=== PATIENT | male | born 1995 | race African-American/Black ===

== ENCOUNTER 2016-09-15 12:40 | Emergency (ER) | payer BC, SELFPAY ==
--- NOTE | 2016-09-15 13:53 | RAD ---
EXAM: RIGHT HAND 3 VIEWS: HISTORY: The patient pinched and dropped generator on the right hand. Pain. COMPARISON: FINDINGS: FINDINGS: There is a nondisplaced fracture involving the head of the 5th metacarpal. There may be intraarticu lar extension. Additional fractures are not appreciated. Joint space is preserved. IMPRESSION: Nondisplaced fracture involving the 5th metacarpal head. POS: [facility]
--- NOTE | 2016-09-15 13:54 | ERRECORD ---
[facility] EMERGENCY RECORD HPI HAND (13:35 PMYE) CHIEF COMPLAINT: Patient presents for evaluation of injury, to the right hand. HISTORIAN: History provided by patient. MECHANISM OF INJURY: 21 y/o male who dropped a 80 lb generator on right hand. LOCATION: Symptoms are generalized. QUALITY: Pain is sharp in nature. SEVERITY: Maximum severity of symptoms mild, Currently symptoms are mild. TIME COURSE: Gradual onset of symptoms, There has been no change in the patient's symptoms over time. ASSOCIATED WITH: No associated symptoms, N V intact distally. EXACERBATED BY: Patient's condition exacerbated by flexion of fingers. RELIEVED BY: Patient's condition relieved by rest. ROS (13:36 PMYE) CONSTITUTIONAL: Negative constitutional review of systems, Historian denies chills, denies fatigue, denies fever. EYES: Negative eye review of systems, Historian denies eye pain, denies eye redness. ENT: Negative ears, nose, throat review of systems, Historian denies dysphasia, denies otalgia, denies sore throat. CARDIOVASCULAR: Negative cardiovascular review of systems, Historian denies chest pain, denies dyspnea on exertion, denies syncope. RESPIRATORY: Negative respiratory review of systems, Historian denies cough, denies shortness of breath, denies wheezing. GI: Negative gastrointestinal review of systems, Historian denies abdominal pain, denies nausea, denies vomiting. MUSCULOSKELETAL: Negative musculoskeletal review of systems, Historian denies back pain, denies neck pain. SKIN: Negative skin review of systems, Historian denies rash. NEUROLOGIC: Negative neurologic review of systems, Historian denies confusion, denies headache, denies paresthesias. PSYCHIATRIC: Negative psychiatric review of systems, Historian denies alcohol abuse, denies drug abuse, denies homicidal ideation, denies suicidal ideation. PAST [facility]13:02 [facility] MEDICAL HISTORY: No past medical history. MALE SURGICAL HISTORY: L femur surgery. PSYCHIATRIC HISTORY: No previous psychiatric history. SOCIAL HISTORY: Patient denies alcohol use, Patient denies drug use, Patient is a former tobacco user, smoked cigarettes, Patient quit smoking less than 10 years ago. KNOWN ALLERGIES None CURRENT MEDICATIONS (12:59 [facility] &a-1R&a+25V*p+0X*v7473Z*c202B*c15G*c2P*p-0X&a-25V&a+1R Name: Dionicio Cherry : 1995 M21 MedRec: [id number] AcctNum: [id number] Prepared: ThuSep 15, 2016 14:06 by Interface Page 1 of 3 pMD [facility] EMERGENCY RECORD None VITAL SIGNS (12:57 [facility] VITAL SIGNS: BP: 121/71, Pulse: 78, Resp: 18, Temp: 98.1 (Oral), Pain: 5, O2 sat: 98 on Room Air, Time: 09/15/2016 12:57. PHYSICAL EXAM (13:36 PMYE) CONSTITUTIONAL: Vital signs reviewed, Patient afebrile, Pulse normal, Blood pressure normal, Respiratory rate normal. HEAD: Head exam normal, Head exam included findings of head atraumatic, normocephalic. EYES: Eye exam normal, Eye exam included findings of eyelids normal to inspection, Pupils equally round and reactive to light, Extraocular muscles intact. ENT: ENT exam normal, Pharynx exam normal, Uvula exam normal, Tonsil exam normal. NECK: Neck exam normal, Neck exam included findings of normal range of motion, Trachea midline. RESPIRATORY CHEST: Respiratory and chest exam normal, No wheezing, No rales, No rhonchi. CARDIOVASCULAR: Cardiovascular assessment normal, Cardiovascular exam included findings of heart rate regular rate and rhythm, Heart sounds normal. ABDOMEN MALE: Abdominal exam normal, Abdominal exam included findings of abdomen nontender, Bowel sounds normal. BACK: Back exam normal. UPPER EXTREMITY: Palp pain at MCP joint of 5th digit. Pain w/ AROM. NV intact. NEURO: Neuro exam normal, Neuro exam findings include patient oriented to person, place and time, [place] coma scale 15, Speech normal. SKIN: Skin exam included findings of skin warm, dry, and normal in color. PSYCHIATRIC: Psychiatric exam included findings of patient oriented to person place and time, Normal affect. RADIOLOGYINTERPRETATION (13:37 PMYE) UPPER EXTERMITIES: Radiological interpretation of, the right hand shows, fracture noted, to metacarpal, 5th finger. DOCTOR NOTES (13:39 PMYE) TEXT: xr show MC fx distal 5th. Pt placed in ulnar gutter. Will f/u w/ ortho. PROBLEM LIST No recorded problems DIAGNOSIS (13:40 PMYE) FINAL: PRIMARY: 5th metacarpal fracture. &a-1R&a+25V*p+0X*f0792L*c202B*c15G*c2P*p-0X&a-25V&a+1R Name: Dionicio Cherry : 1995 1 MedRec: [id number] AcctNum: [id number] Prepared: ThuSep 15, 2016 14:06 by Interface Page 2 of 3 pMD [facility] EMERGENCY RECORD PRESCRIPTION No recorded prescriptions DISPOSITION PATIENT: Disposition Type: Discharge, Disposition: *Discharge Home. (13:40 PMYE) Patient left the department. (13:58 RK) Hernandez: PMYE=DO Randolph Paul [facility]=JULIA Dunn, Phylicia &a-1R&a+25V*p+0X*s9023C*c202B*c15G*c2P*p-0X&a-25V&a+1R Name: Doinicio Cherry : 1995 1 MedRec: [id number] AcctNum: [id number] Prepared: ThuSep 15, 2016 14:06 by Interface Page 3 of 3 pMD MTDD
--- NOTE | 2016-09-15 13:55 | PICIS ---
[facility] EMERGENCY RECORD TRIAGE (ThuSep 15, 2016 12:59 [facility]) TRIAGE NOTES: Pinched, dropped generator R hand 4-5 inches loading off a truck. (ThuSep 15, 2016 12:59 [facility]) PATIENT: NAME: Dionicio hCerry, AGE: 21, GENDER: male, : Thu1995, TIME OF GREET: ThuSep 15, 2016 12:41, PREFERRED LANGUAGE: Urdu, ECODE BILLING MAP: [facility], Zip Code: [address], KG WEIGHT: 70.31, PHONE: , , , PERSON ID: [id number], [facility] (ThuSep 15, 2016 12:59 [facility]) COMPLAINT: GET RT HAND CHECKED OUT. (ThuSep 15, 2016 12:59 [facility]) ADMISSION: URGENCY: 4 Non Urgent, ADMISSION SOURCE: Work, TRANSPORT: CAR, BED: TRIAGE. (ThuSep 15, 2016 12:59 [facility]) IMMUNIZATIONS: Flu vaccine not up to date, Tetanus not up to date. (13:02 [facility]) SIRS SCORING: Heart Rate 55-109 (0), Temp range 96.8-101.1 (0), respiratory rate 12-24 (0). (13:02 [facility]) TRIAGE SCREENING: Patient denies suicidal ideation, Patient denies presence of domestic violence. (13:02 [facility]) PROVIDERS: TRIAGE NURSE: Phylicia Dunn RN. (ThuSep 15, 2016 12:59 [facility]) VITAL SIGNS: BP 121/71, Pulse 78, Resp 18, Temp 98.1, (Oral), Pain 5, O2 Sat 98, on Room Air, Time 09/15/2016 12:57. (12:57 [facility]) KNOWN ALLERGIES None CURRENT MEDICATIONS (12:59 [facility]) None VITAL SIGNS (12:57 [facility]) VITAL SIGNS: BP: 121/71, Pulse: 78, Resp: 18, Temp: 98.1 (Oral), Pain: 5, O2 sat: 98 on Room Air, Time: 09/15/2016 12:57. NURSING ASSESSMENT: EXTREMITY UPPER (13:03 [facility]) CONSTITUTIONAL: Complex assessment performed, Patient arrives ambulatory, Gait steady, History obtained from patient, Patient appears comfortable, Patient cooperative, Patient alert, Oriented to person, place and time, Skin warm, Skin dry, Skin normal in color, Mucous membranes pink, Mucous membranes moist, Patient is well-groomed, Pt reports accidentally dropping a generator on his R hand during work this AM. He reports throbbing pain since then, and says he can still move his hand, but "my pinky pops when I try to fully extend it." Pt's hand is swollen and feels slightly feverish to the touch. PAIN: to the right hand, on a scale 0-10 patient rates pain as 5. LEFT UPPER EXTREMITY: Left upper extremity assessment findings include capillary refill less than 2 seconds, Skin color normal to &a-1R&a+25V*p+0X*v9863E*c202B*c15G*c2P*p-0X&a-25V&a+1R Name: Dionicio Cherry Juanjo : 1995 M21 MedRec: [id number] AcctNum: [id number] Prepared: ThuSep 15, 2016 14:06 by Interface Page 1 of 5 pMD [facility] EMERGENCY RECORD hand, Skin temperature to hand warm, Distal sensation intact, Muscle tone normal, muscle strength 5, no edema present, radial pulse is +3. RIGHT UPPER EXTREMITY: Right upper extremity assessment findings include capillary refill less than 2 seconds, Skin color normal to hand, Skin temperature to hand warm, Distal sensation intact, Muscle tone normal, muscle strength 4, no edema present, radial pulse is +3, Inspection findings include swelling, to R pinky, lateral hand. SAFETY: Side rails up, Cart/Stretcher in lowest position, Call light within reach, Hospital ID band on. NURSING PROCEDURE: BEDSIDE RADIOLOGY (13:05 [facility]) PATIENT IDENTIFIER: Patient actively involved in identification process, Patient's identity verified by patient stating name, Patient's identity verified by hospital ID bracelet. BEDSIDE RADIOLOGY: Bedside radiology performed by Geno, Portable x-ray performed, of the right hand. SAFETY: Side rails up, Cart/Stretcher in lowest position, Call light within reach, Hospital ID band on. NURSING PROCEDURE: DISCHARGE NOTE (13:56 [facility]) DISCHARGE: Patient discharged to home, ambulating without assistance, driving self, unaccompanied, Discharge instructions given to patient, Simple or moderate discharge teaching performed, by JULIA Whatley, Patient treated and evaluated by physician. BELONGINGS: Belongings and valuables with patient upon arrival to the Emergency Department include:, Belongings and valuables with patient at time of discharge include:. NURSING PROCEDURE: SPLINTING (13:55 [facility]) SPLINTING: Splinting indicated for fracture care, Splint applied to, the right hand, by ADAM Randolph, 2 inch josué wrap applied, Immobilized in position of comfort. FOLLOW-UP: After procedure, capillary refill less than 2 seconds, After procedure, distal circulation intact, After procedure, distal motor function intact, After procedure, distal sensation intact, After procedure, distal pulses present. SAFETY: Side rails up, Cart/Stretcher in lowest position, Family at bedside, Call light within reach, Hospital ID band on. ORDER DETAILS Order Name: XR Hand Rt 3 View STANDARD, Status: Active, Time: 13:00 09/15/2016, User: [facility], - Ordered for: DO Randolph Paul, - Entered by: JULIA Dunn, Phylicia - ThuSep 15, 2016 13:00, - Quantity: 1. HPI HAND (13:35 PMYE) CHIEF COMPLAINT: Patient presents for evaluation of &a-1R&a+25V*p+0X*w4309T*c202B*c15G*c2P*p-0X&a-25V&a+1R Name: Dionicio Cherry : 1995 M21 MedRec: [id number] AcctNum: [id number] Prepared: ThuSep 15, 2016 14:06 by Interface Page 2 of 5 pMD [facility] EMERGENCY RECORD injury, to the right hand. HISTORIAN: History provided by patient. MECHANISM OF INJURY: 21 y/o male who dropped a 80 lb generator on right hand. LOCATION: Symptoms are generalized. QUALITY: Pain is sharp in nature. SEVERITY: Maximum severity of symptoms mild, Currently symptoms are mild. TIME COURSE: Gradual onset of symptoms, There has been no change in the patient's symptoms over time. ASSOCIATED WITH: No associated symptoms, N V intact distally. EXACERBATED BY: Patient's condition exacerbated by flexion of fingers. RELIEVED BY: Patient's condition relieved by rest. ROS (13:36 PMYE) CONSTITUTIONAL: Negative constitutional review of systems, Historian denies chills, denies fatigue, denies fever. EYES: Negative eye review of systems, Historian denies eye pain, denies eye redness. ENT: Negative ears, nose, throat review of systems, Historian denies dysphasia, denies otalgia, denies sore throat. CARDIOVASCULAR: Negative cardiovascular review of systems, Historian denies chest pain, denies dyspnea on exertion, denies syncope. RESPIRATORY: Negative respiratory review of systems, Historian denies cough, denies shortness of breath, denies wheezing. GI: Negative gastrointestinal review of systems, Historian denies abdominal pain, denies nausea, denies vomiting. MUSCULOSKELETAL: Negative musculoskeletal review of systems, Historian denies back pain, denies neck pain. SKIN: Negative skin review of systems, Historian denies rash. NEUROLOGIC: Negative neurologic review of systems, Historian denies confusion, denies headache, denies paresthesias. PSYCHIATRIC: Negative psychiatric review of systems, Historian denies alcohol abuse, denies drug abuse, denies homicidal ideation, denies suicidal ideation. PAST MEDICAL HISTORY (13:02 [facility]) MEDICAL HISTORY: No past medical history. MALE SURGICAL HISTORY: L femur surgery. PSYCHIATRIC HISTORY: No previous psychiatric history. SOCIAL HISTORY: Patient denies alcohol use, Patient denies drug use, Patient is a former tobacco user, smoked cigarettes, Patient quit smoking less than 10 years ago. PHYSICAL EXAM (13:36 PMYE) CONSTITUTIONAL: Vital signs reviewed, Patient afebrile, Pulse normal, Blood pressure normal, Respiratory rate normal. HEAD: Head exam normal, Head exam included findings of head atraumatic, normocephalic. EYES: Eye exam normal, Eye exam included findings of eyelids &a-1R&a+25V*p+0X*r4556T*c202B*c15G*c2P*p-0X&a-25V&a+1R Name: DilipDionicio Juanjo : 1995 M21 MedRec: [id number] AcctNum: [id number] Prepared: ThuSep 15, 2016 14:06 by Interface Page 3 of 5 pMD [facility] EMERGENCY RECORD normal to inspection, Pupils equally round and reactive to light, Extraocular muscles intact. ENT: ENT exam normal, Pharynx exam normal, Uvula exam normal, Tonsil exam normal. NECK: Neck exam normal, Neck exam included findings of normal range of motion, Trachea midline. RESPIRATORY CHEST: Respiratory and chest exam normal, No wheezing, No rales, No rhonchi. CARDIOVASCULAR: Cardiovascular assessment normal, Cardiovascular exam included findings of heart rate regular rate and rhythm, Heart sounds normal. ABDOMEN MALE: Abdominal exam normal, Abdominal exam included findings of abdomen nontender, Bowel sounds normal. BACK: Back exam normal. UPPER EXTREMITY: Palp pain at MCP joint of 5th digit. Pain w/ AROM. NV intact. NEURO: Neuro exam normal, Neuro exam findings include patient oriented to person, place and time, [place] coma scale 15, Speech normal. SKIN: Skin exam included findings of skin warm, dry, and normal in color. PSYCHIATRIC: Psychiatric exam included findings of patient oriented to person place and time, Normal affect. EVENTS TRANSFER: Triage to Emergency Triage. (ThuSep 15, 2016 12:59 [facility]) Emergency Triage to Emergency Room -03. (12:59 [facility]) Removed from Emergency Emergency Room -03. (13:58 [facility]) RADIOLOGYINTERPRETATION (13:37 PMYE) UPPER EXTERMITIES: Radiological interpretation of, the right hand shows, fracture noted, to metacarpal, 5th finger. DOCTOR NOTES (13:39 PMYE) TEXT: xr show MC fx distal 5th. Pt placed in ulnar gutter. Will f/u w/ ortho. ORTHO SPLINTING (13:37 PMYE) ORTHO SPLINTING: Side and/or site verified, Patient identification confirmed, Verbal consent obtained, Splinting indicated for fracture, Hand cast applied, Ulnar gutter post mold applied, Immobilized in position of comfort, Patient tolerated the procedure well. PROBLEM LIST No recorded problems DIAGNOSIS (13:40 PMYE) &a-1R&a+25V*p+0X*g2729F*c202B*c15G*c2P*p-0X&a-25V&a+1R Name: Dionicio Cherry : 1995 M21 MedRec: [id number] AcctNum: [id number] Prepared: ThuSep 15, 2016 14:06 by Interface Page 4 of 5 pMD [facility] EMERGENCY RECORD FINAL: PRIMARY: 5th metacarpal fracture. DISPOSITION PATIENT: Disposition Type: Discharge, Disposition: *Discharge Home. (13:40 PMYE) Patient left the department. (13:58 [facility]) INSTRUCTION (13:40 PMYE) DISCHARGE: METACARPAL FRACTURE CLOSED. FOLLOWUP: [facility], Clinic, [address] [facility] , , MD Derek, [place], Orthopedic Surgery, [address], [address], [facility] [address], , Follow up with Primary Care Physician in 1-2 days, Follow up with Specialist as soon as possible. SPECIAL: Follow-up with your PCP. PRESCRIPTION No recorded prescriptions IMAGING (13:57 [facility]) *SUPPLY CHARGE SHEET: Image captured from scanner. *DISCHARGE INSTRUCTIONS RECEIPT: Image captured from scanner. ADMIN (13:42 PMYE) DIGITAL SIGNATURE: DO Randolph Paul. Hernandez: PMYE=DO Randolph Paul [facility]=JULIA Dunn, Phylicia &a-1R&a+25V*p+0X*q1253R*c202B*c15G*c2P*p-0X&a-25V&a+1R Name: Dionicio Cherry : 1995 M21 MedRec: [id number] AcctNum: [id number] Prepared: ThuSep 15, 2016 14:06 by Interface Page 5 of 5 pMD MTDD
== END 2016-09-15 13:55 | disposition home or self-care (01) ==
LOC: NAV ERS 12:40
DX: S62.346A Nondisplaced fracture of base of fifth metacarpal bone, right hand, initial encounter for closed fracture (principal); Z87.891 Personal history of nicotine dependence; W20.8XXA Other cause of strike by thrown, projected or falling object, initial encounter
CPT/HCPCS: 29125